=== PATIENT | male | born 2000 | race Caucasian/White ===

== ENCOUNTER 2021-03-19 14:10 | Emergency (ER) | payer OTHER, SELFPAY ==
[~2021-03-19] VITALS: Ht 177.8 cm; Wt 86.4 kg
--- NOTE | 2021-03-19 15:20 | REP ---
INDICATION: trauma COMPARISON: None. TECHNIQUE: AP, lateral, bilateral oblique views left foot. FINDINGS: There is an acute comminuted essentially nondisplaced fracture at the base of the 5th metatarsal bone with overlying soft tissue swelling. Remainder of the examination is normal. IMPRESSION: Comminuted essentially nondisplaced fracture at the base of the 5th metatarsal bone. <Electronically signed by Chance Silva > 03/19/21 [id number]
[2021-03-19] MEDS ORDERED: NEOSPORIN OINT 0.9 GM PKT TOP ONE (15:50)
[2021-03-19] MEDS ORDERED: HYDR-3713 PO (16:22)
[2021-03-19 16:33] VITALS: BP 124/70
== END 2021-03-19 16:35 | disposition home or self-care (01) ==
LOC: M ED 14:10
DX: S92.355A Nondisplaced fracture of fifth metatarsal bone, left foot, initial encounter for closed fracture (principal); V83.7XXA Person on outside of special industrial vehicle injured in nontraffic accident, initial encounter; Y92.9 Unspecified place or not applicable; Y99.0 Civilian activity done for income or pay; Y93.9 Activity, unspecified